=== PATIENT | male | born 1935 | race Caucasian/White ===

== ENCOUNTER 2017-02-16 11:48 | Emergency (ER) | payer MEDICARE, BC ==
[2017-02-16 12:42] VITALS: BP 141/62
[2017-02-16] MEDS ORDERED: Phenylephrine 1% NASAL* 15 ML BOT RIGHT NARE ONE (12:56)
[2017-02-16] MEDS ORDERED: Lidocaine 2% VISCOUS* 15 ML UDC TOPICAL ONE (12:57)
[2017-02-16] MEDS ORDERED: Silver Nitrate/Potassium Nitr* 1 EA STICK TOPICAL ONE (12:59)
--- NOTE | 2017-02-16 13:11 | UC ---
Epistaxis Nasal HPI - HPI Summary HPI Summary: 81 yo male on xarelleto presents with on and off right epeistaxis x 3 days no cp or sob no dizziness or weakness - History of Current Complaint Chief Complaint: [place] Stated Complaint: BLOODY NOSE SINCE 02/14 Time Seen by Provider: 02/16/17 12:45 Hx Obtained From: Patient Onset/Duration: Sudden Onset Timing: Minutes - to hours Severity Initially: Moderate Severity Currently: Mild Pain Intensity: 0 Pain Scale Used: 0-10 Numeric Character: Heavy - at times Aggravating Factor(s): Nothing Alleviating Factor(s): Pressure Related Hx: Anticoagulants - Allergies/Home Medications Allergies/Adverse Reactions: Allergies Allergy/AdvReac Type Severity Reaction Status Date / Time No Known Allergies Allergy Verified 02/16/17 12:30 Home Medications: Home Medications Allopurinol TAB* [Zyloprim 300 MG TAB*] 300 mg PO DAILY 02/16/17 [History Confirmed 02/16/17] Ascorbic Acid TAB* [Vitamin C TAB*] 500 mg PO DAILY 02/16/17 [History Confirmed 02/16/17] Cholecalciferol [Vitamin D] 1,000 unit PO 02/16/17 [History] Losartan Potassium 100 mg PO 02/16/17 [History] Omeprazole CAP* [Prilosec CAP* 20 MG] 20 mg PO DAILY 02/16/17 [History Confirmed 02/16/17] Pioglitazone TAB* [Actos TAB*] 15 mg PO DAILY 02/16/17 [History Confirmed ] Rivaroxaban TAB(*) [Xarelto 15 mg(*)] 15 mg PO DAILY 02/16/17 [History Confirmed 02/16/17] Sitagliptin Phosphate [Januvia] 100 mg PO 02/16/17 [History] Tamsulosin HCl [Flomax] 0.4 mg PO 02/16/17 [History Confirmed 02/16/17] PMH/Surg Hx/FS Hx/Imm Hx Previously Healthy: Yes Endocrine History: Diabetes, Dyslipidemia Cardiovascular History: Atrial Fibrillation - Surgical History Surgical History: None - Family History Known Family History: Positive: Hypertension - Social History Alcohol Use: Daily Alcohol Amount: 2 glasses of wine Substance Use Type: None Smoking Status (MU): Smoker, Current Status Unknown Type: Cigars Amount Used/How Often: "every once in a while" Review of Systems Constitutional: Negative Skin: Negative Eyes: Negative ENT: Epistaxis Respiratory: Negative Cardiovascular: Negative Gastrointestinal: Negative Genitourinary: Negative Motor: Negative Neurovascular: Negative Musculoskeletal: Negative Neurological: Negative Psychological: Negative All Other Systems Reviewed And Are Negative: Yes Physical Exam Triage Information Reviewed: Yes Appearance: Well-Appearing, No Pain Distress, Well-Nourished Vital Signs: Initial Vital Signs Temp 97.5 F 02/16/17 12:18 Pulse 75 02/16/17 12:18 Resp 15 02/16/17 12:18 BP 141/62 02/16/17 12:18 Pulse Ox 94 02/16/17 12:18 Vital Signs Reviewed: Yes Eyes: Positive: Conjunctiva Clear ENT: Positive: Hearing grossly normal, Pharynx normal, Other: - clot Keissalblock plexus. Negative: Tonsillar swelling, Tonsillar exudate, Trismus, Muffled/hoarse voice Dental Exam: Normal Neck: Positive: Supple, Nontender Respiratory: Positive: Lungs clear, Normal breath sounds, No respiratory distress, No accessory muscle use Cardiovascular: Positive: RRR, No Murmur Musculoskeletal: Positive: ROM Intact, No Edema Neurological: Positive: Alert Psychological Exam: Normal Skin Exam: Normal Procedures - Procedure Summary Procedure Summary: nasal cautery cotton pleget with viscous lidocaine and neosynephrin inserted in right nare site of bleedling in [place] plexis cauterized with AgNitrate stick tolerated procedure well Epistaxis Nasal Course/Dx - Differential Dx/Diagnosis Provider Diagnoses: epistaxis right nares (anterior) Discharge - Discharge Plan Condition: Stable Disposition: HOME Patient Education Materials: Nosebleed (ED) Referrals: Gabino Camacho DO [Primary Care Provider] - 1 Day Additional Instructions: take it easy today no bending over/lifting if it re-bleeding occurs apply pressure as discussed for 10-15 minutes You can also try a product known as [facility] your MD tomorrow to ER for new or worsening symptoms if things persist you may need to see an ENT specialist
== END 2017-02-16 13:38 | disposition home or self-care (01) ==
LOC: UCCORT 11:48
DX: R04.0 Epistaxis (principal); I48.2 Chronic atrial fibrillation; Z79.01 Long term (current) use of anticoagulants; E11.9 Type 2 diabetes mellitus without complications; E78.5 Hyperlipidemia, unspecified; Z72.0 Tobacco use
CPT/HCPCS: 30901; 99201; A9270-GY; G0463